=== PATIENT | male | born 1950 | race Caucasian/White ===

== ENCOUNTER 2019-06-29 22:59 | Emergency (ER) | payer OTHER ==
[~2019-06-29] VITALS: Ht 177.8 cm; Wt 88.9 kg
[2019-06-29 23:06] VITALS: Ht 177.8 cm; Wt 88.9 kg
[2019-06-30 01:50] VITALS: BP 159/85
== END 2019-06-30 01:50 | disposition home or self-care (01) ==
LOC: ED 22:59
DX: S22.42XA Multiple fractures of ribs, left side, initial encounter for closed fracture (principal); S39.92XA Unspecified injury of lower back, initial encounter; W10.8XXA Fall (on) (from) other stairs and steps, initial encounter; Y93.89 Activity, other specified; Y92.89 Other specified places as the place of occurrence of the external cause; Y99.8 Other external cause status